=== PATIENT | male | born 1985 | race Caucasian/White ===

== ENCOUNTER 2017-07-05 23:29 | Emergency (ER) | payer OTHER ==
[~2017-07-05] VITALS: Ht 172.7 cm; Wt 72.6 kg
[~2017-07-05 23:29] MED LIST: ALBU90OI INH; AMOX500 PO; CEPH250A PO; CODGUAEL PO; CRUTCH4 USE; ERYT.5TO OU; HYDACE5 PO; NAPR500 PO; ONDA8 PO; OXYACE7.5T PO; PENVK500 PO; RXOXYACE PO; SULTRIDS PO; SUMA25 PO
[2017-07-06] MEDS ORDERED: BENADRYL25 MG PO (00:40)
[2017-07-06] MEDS ORDERED: Prednisone20 MG PO (00:40)
== END 2017-07-06 01:14 | disposition home or self-care (01) ==
LOC: ER 23:29
DX: L25.9 Unspecified contact dermatitis, unspecified cause (principal); G43.909 Migraine, unspecified, not intractable, without status migrainosus; F17.210 Nicotine dependence, cigarettes, uncomplicated
CPT/HCPCS: 99283; Q0163

== ENCOUNTER 2017-08-24 06:41 | Emergency (ER) | payer OTHER ==
[~2017-08-24] VITALS: Ht 167.6 cm; Wt 60.3 kg
[~2017-08-24 06:41] MED LIST changes: +BENADRYL25 MG PO; +Prednisone20 MG PO
[2017-08-24] MEDS ORDERED: Prednisone20 MG PO (07:43)
[2017-08-24] MEDS ORDERED: Robaxin500 MG PO (07:43)
[2017-08-24] MEDS ORDERED: NAPR550 PO (07:43)
== END 2017-08-24 07:56 | disposition home or self-care (01) ==
LOC: ER 06:41
DX: M54.5 Low back pain (principal); F17.210 Nicotine dependence, cigarettes, uncomplicated; Z79.899 Other long term (current) drug therapy; Z79.1 Long term (current) use of non-steroidal anti-inflammatories (NSAID); X50.0XXA Overexertion from strenuous movement or load, initial encounter
CPT/HCPCS: 96372; 99283; J1885

== ENCOUNTER 2018-09-09 20:17 | Emergency (ER) | payer OTHER ==
[~2018-09-09] VITALS: Ht 170.2 cm; Wt 59.0 kg
[~2018-09-09 20:17] MED LIST changes: +NAPR550 PO; +Robaxin500 MG PO
[2018-09-09] MEDS ORDERED: PRED20 PO (21:03)
[2018-09-09] MEDS ORDERED: Robaxin500 MG PO (21:03)
[2018-09-09] MEDS ORDERED: Naprosyn500 MG PO (21:03)
== END 2018-09-09 21:26 | disposition home or self-care (01) ==
LOC: ER 20:17
DX: M54.5 Low back pain (principal); F17.210 Nicotine dependence, cigarettes, uncomplicated
CPT/HCPCS: 96372; 99283-25; J1885; J7512

== ENCOUNTER 2019-06-12 18:44 | Emergency (ER) | payer OTHER ==
[~2019-06-12] VITALS: Ht 170.2 cm; Wt 61.2 kg
[~2019-06-12 18:44] MED LIST changes: +Naprosyn500 MG PO; +PRED20 PO
== END 2019-06-12 22:27 | disposition left against medical advice (07) ==
LOC: ER 18:44
DX: M54.2 Cervicalgia (principal); Z53.20 Procedure and treatment not carried out because of patient's decision for unspecified reasons

== ENCOUNTER → 2022-08-25 | Outpatient (CLI) | payer OTHER ==
[2022-08-25 19:20] LABS: BASOPHILS ABSOLUTE AUTO 0.04 K/mm3 (0.00-0.23); BASOPHILS PERCENT AUTO 1 % (0-2); EOSINOPHILS ABSOLUTE AUTO 0.13 K/mm3 (0.00-0.68); EOSINOPHILS PERCENT AUTO 2 % (0-6); Hematocrit 39.9 % (37.0-53.0); Hemoglobin 13.3 g/dL (13.5-17.5); IMMATURE GRAN PERCENT AUTO 0 % (0-1); LYMPHOCYTES ABSOLUTE AUTO 2.27 K/mm3 (0.84-5.20); LYMPHOCYTES PERCENT AUTO 31 % (21-46); MONOCYTES ABSOLUTE AUTO 0.67 K/mm3 (0.16-1.47); MONOCYTES PERCENT AUTO 9 % (4-13); Mean Corpuscular HGB Conc 33.3 g/dL (31.5-36.5); Mean Corpuscular Volume 90 fL (80-100); Mean Platelet Volume 10.5 fL (9.1-12.4); NEUTROPHILS ABSOLUTE AUTO 4.34 K/mm3 (1.96-9.15); NEUTROPHILS PERCENT AUTO 58 % (41-73); Platelet Count 223 K/mm3 (150-400); RDW Coefficient Variation 13.3 % (11.7-14.2); RDW Standard Deviation 44.1 fL (35.1-46.3); Red Blood Cell Count 4.44 M/mm3 (4.30-5.90); White Blood Cell Count 7.45 K/mm3 (4.00-11.30)
[2022-08-25 20:45] LABS: Albumin, Blood 4.1 g/dL (3.4-5.0); Albumin/Globulin Ratio 1.5 (0.8-1.8); Bilirubin, Total 0.3 mg/dL (0.1-1.0); Creatinine, Blood 0.88 mg/dL (0.60-1.20); Globulin, Blood 2.8 g/dL (2.2-4.0); Potassium, Blood 4.4 mmol/L (3.5-5.5); Thyroid Stimulating Hormone 3.09 uIU/mL (0.360-4.800); Total Protein, Blood 6.9 g/dL (6.4-8.2)
[2022-08-27 09:12] LABS: HIV AB/P24 AG SCREEN Non Reactive (Non Reactive)
== END ==
LOC: LAB 18:16 → LAB SHORT 18:16
PROVIDERS: Nurse Practitioner Family
DX: F19.11 Other psychoactive substance abuse, in remission (principal)
CPT/HCPCS: 80053; 84443; 85025; 86803; 87389

== ENCOUNTER 2022-10-04 20:52 | Emergency (ER) | payer OTHER ==
[~2022-10-04] VITALS: Ht 167.6 cm; Wt 56.7 kg
[2022-10-04 21:09] VITALS: BP 127/86
== END 2022-10-04 22:14 | disposition home or self-care (01) ==
LOC: ER 20:52
DX: S80.12XA Contusion of left lower leg, initial encounter (principal); F17.210 Nicotine dependence, cigarettes, uncomplicated; W22.8XXA Striking against or struck by other objects, initial encounter
CPT/HCPCS: 99283

== ENCOUNTER 2023-08-23 19:20 | Emergency (ER) | payer OTHER ==
[~2023-08-23] VITALS: Ht 167.6 cm; Wt 61.2 kg
[2023-08-23 19:24] VITALS: BP 137/66
[2023-08-23] MEDS ORDERED: Tetracaine HCl/Pf 0.5% Opth Soln 4 ml LEFTEYE ONE (19:30)
[2023-08-23] MEDS ORDERED: Fluorescein Sod 1MG Opth Strips LEFTEYE ONE (19:30)
== END 2023-08-23 20:06 | disposition home or self-care (01) ==
LOC: ER 19:20
DX: S05.02XA Injury of conjunctiva and corneal abrasion without foreign body, left eye, initial encounter (principal); F17.210 Nicotine dependence, cigarettes, uncomplicated; W22.8XXA Striking against or struck by other objects, initial encounter
CPT/HCPCS: 99282; A9270